=== PATIENT | female | born 2000 ===

== ENCOUNTER → 2024-12-14 | Outpatient (REF) | payer BC, SELFPAY ==
--- NOTE | 2024-12-14 | HM_ITS ---
* Total monitoring time 4 days and 13 hours. * Underlying rhythm is sinus with an average rate of 86/Min. * Rare supraventricular ectopy. * Rare ventricular ectopy. Rare couplets/triplets. * No significant pauses or high-grade AV blocks. * No patient markers or diary events. MTDD
--- OUTSIDE RECORDS SUMMARY | 2025-02-21 08:52 | XMS_ITS | Clinical Summary ---
Author Organization [facility] Address [address] [address] Phone Care Team Providers Care Coke Drawer Hand Name Role Phone Dayan Santo NP Primary Care Provid er Allergies No known active allergies Medications sertraline (ZOLOFT) 50 MG tablet Take 50 mg by mouth daily. 12/11/2021 Active LORazepam (ATIVAN) 0.5 MG tablet Take 0.5 mg by mouth 2 (two) times a day as needed for anxiety. 12/11/2021 Active albuterol 90 mcg/actuation inhaler Inhale 2 puffs into the lungs every 6 (six) hours as needed for wheezing. Active Active Problems Problem Noted Date Diagnosed Date History of UTI 01/28/2022 Hydronephrosis with urinary obstruction due to ureteral calculus 01/15/2022 Assessment & Plan (01/15/2022 12:50 AM EDT): We will strain all urine and perform a stone analysis if we catch a stone. She will be seen in consultation by urology with a plan for possible ureteral stent placement. We will have her n.p.o. She will have scheduled Toradol with as needed IV and oral analgesia. She will have as needed IV antiemetics. Depression with anxiety 01/15/2022 Mild intermittent asthma, uncomplicated 01/16/20 22 Acute cystitis 01/15/2022 Assessment & Plan (01/15/2022 12:50 AM EDT): We will give IV ceftriaxone. We will give IV fluids. Pyelonephritis of right kidney 01/15/2022 Encounters Date Type Department Care Team Description 01/13/2025 9:30 AM EDT - 01/13/2025 11:59 PM EDT Hospital Encounter [facility] [address] [place] [address] Conchita Singh CNP Discharge Disposition: Home or Self Care 12/10/2024 Procedure Pass [facility] [address] [place] [address] 12/10/2024 Transcribe Orders Virtual Department [address] [place] [address] Conchita Singh CNP Other chest pain (Primary Dx); Palpitations from Last 3 Months Family History Medical History Relation Comments Obesity Father No Known Problems Mother Relation Status Comments Father Alive Mother Alive Social History Tobacco Use Types Packs/Day Years Used Date Smoking Tobacco: Never Smokeless Tobacco: Never Alcohol Use Standard Drinks/Week Comments Never 0 (1 standard drink = 0.6 oz pur e alcohol) Education Answer Date Recorded Are you interested in more education? Not on tera e 09/06/2022 Are you concerned about learning? Not on file 09/06/2022 No 09/06/2022 No 09/06/2022 Digital Access Answer Date Recorded No 10/04/2022 No 10/04/2022 No 10/04/2022 Reliable internet access at home? Not on file 10/04/2022 Device with a working camera? Not on file Comments No Sex and Gender Information Value Date Recorded Sex Assigned at Female 01/14/2022 7:08 PM EDT Legal Sex Female 8:45 PM EDT Gender Identity Female 01/14/2022 7:08 PM EDT Sexual Orientation Not on file Last Filed Vital Signs Vital Sign Reading Time Taken Comments Blood Pressure 100/60 01/28/2022 9:15 AM EDT Pulse 73 01/28/2022 9:25 AM EDT Temperature 36.3 C (97.3 F) 01/28/2022 8:37 AM EDT Respiratory Rate 19 01/28/2022 9:25 AM EDT Oxygen Saturation 100% 01/28/2022 9:25 AM EDT Inhaled Oxygen Concentration - - Weight 70.8 kg (156 lb) 01/25/2022 9:04 AM EDT Height 162.6 cm (5' 4 ) 01/25/2022 9:04 AM EDT Body Mass Index 26.78 01/25/2022 9:04 AM EDT Plan of Treatment Health Maintenance Due Date Last Done Comments Adult Td,Tdap Booster 2002 DEPRESSION SCREENING 2014 SMOKING Hx and SMOKELESS TOB ACCO SCREENING 07/14/2015 HPV VACCINES (1 - 3-dose series) 2017 CHLAMYDIA SCREENING 2018 MENINGOCOCCAL VACCINES (B) ( 1 of 2 - Standard) 2018 HEPATITIS C SCREENING 2020 HIV ONE-TIME SCREENING (18-6 5 YEARS) 2020 PNEUMOCOCCAL VACCINES (0-49 years) (1 of 2 - PCV) 2021 PAP SMEAR 07/14/2023 INFLUENZA VACCINE (#1) 2024 COVID-19 VACCINE (1 - 2024-2 6 season) 2025 HEPATITIS A VACCINES Aged Out No long er eligible based on patient's age to complete this topic HIB VACCINES Aged Out No longer eligi ble based on patient's age to complete this topic MENINGOCOCCAL VACCINES (ACWY) Aged Out No longer eligible based on patient's age to complete this topic Medical Devices Implanted Type Area Plastic Welder Device Identifier Shelf Expiration Date Model / Serial / Lot Stent Ureteral 6fr 22 To 30cm Stretch Coated Sherif - [id number] Implanted:Qty: 1 on 01/15/2022 by Ayad Pedro MD at [facility] Right: Ureter [employer] 09/10/2024 [id number] / / [id number] Stent Ureteral 6fr 22 To 30cm Stretch Coated Sherif - [id number] Implanted:Qty: 1 on 01/28/2022 by Ayad Pedro MD at [facility] Right: Ureter [employer] 02/20/2024 [id number] / / [id number] Description:With strings att ached Procedures Procedure Name Priority Date/Time Associated Diagnosis Comments TTE COMPREHENSIVE Routine 01/13/2025 10: 14 AM EDT Other chest pain Palpitations from Last 3 Months Results * TTE COMPREHENSIVE (01/13/2025 10:14 AM EDT) Body Surface Area 1.76 m2 Height 163 cm Weight 71 kg Systolic BP 120 mmHg Diastolic BP 80 mmHg Left Atrium Dimension Anterior-Posterior 33 15 - 40 mm Aortic Valve Mean Gradient 4 mmHg Aortic Valve Time Velocity Integral 235.0 mm Aortic Valve Peak Velocity 1.3 m/s Aortic Valve Peak Gradient 7 mmHg Aortic Sinus Diameter 25 <40 mm Ascending Aorta Diameter 24 <36 mm Inferior Vena Cava Diameter 14 <21 mm Interventricular Septum Thickness 6 6 - 11 mm Left Ventricle Internal Diameter End Diastole 49 37 - 52 mm Left Ventricle Internal Diameter End Systole 32 <35 mm Left Ventricular Outflow Tract Diameter 21.0 mm LVOT VTI REST 191.0 mm Left Ventricular Outflow Tract Velocity 1.0 m/s Left Ventricular Outflow Tract Gradient at Rest 4 mmHg Left Ventricular Posterior Wall Thickness 7 6 - 11 mm Left Ventricle Ea Lateral Wave Speed 19.0 cm/s Left Ventricle Ea Septal Wave Speed 12.3 cm/s Ejection Fraction 70 50 - 75 Percent Mitral Valve Deceleration Time 171 ms Left Ventricle A Wave Speed 53.3 cm/s Left Ventricle E Wave Speed 79.5 cm/s Pulmonary Valve Peak Velocity 1.2 m/s Pulmonary Valve Peak Gradient 6 mmHg Right Ventricle Basal Diameter 34 25 - 41 mm Raw LV EF% 57 % MV E/E' Tissue Velocity Lateral 4.18 Relative Wall Thickness 0.29 0.22 - 0.42 Left Ventricle indexed to BSA 57.4 g/m2 MV E/A ratio 1.5 MV E/e' septal 6.46 Left Ventricle E/e' Average 5.3 Aortic Valve Prosthetic Mean Gradient 4 mmHg Aortic Valve Sinus Index by BSA 14 mm/m2 Aorta Sinus Index by Height 1.53 cm/m Aorta Sinus CSA index by Height 3.01 cm2/m Ascending Aorta Index 14 mm/m2 Asc Aorta CSA Index by Height 2.77 cm2/m Pulmonic Valve Prosthetic Peak Gradient 6 mmHg MGB CV AV DIMENSIONLESS INDEX (PEAK) - STRESS ECHO DOBUT - REST 0.77 Ascending Aorta Index 14 mm Aortic Sinus Index 14 mm Ascending Aorta Diameter 14 mm Aortic Valve Sinus Index 1 14 19 - 27 mm AO ASC DIAM BSA INDEX 13.64 Echo E/Ea 6.46 Aortic Valve Prosthetic Peak Gradient 7 mmHg Left Atrial Volume Index 18 16 - 34 mL/m2 Right Ventricle TAPSE 21 >=17 mm Right Ventricle Pulse Doppler S Wave 12.8 >=9.5 cm/s Left Atrial Volume 31 mL Left Atrial Volume Index by Height 19 mL/m Right Atrium Area 17 cm2 Right Atrium Area index 10 cm2/m2 Anatomical Region Laterality Modality Heart Ultrasound Narrative 01/13/2025 11:38 AM EDT Images from the original result were not included. Normal LV size and function EF 65 to 70%. Normal left atrial size. Normal diastolic function. Normal RV size and function. Normal PA pressure estimation. No significant valvular heart disease is seen. Left Ventricle The left ventricle is normal in size. There is normal wall thickness. The LV ejection fraction is 70%. There are no wall motion abnormalities. LV diastolic function appears within normal limits for age. The E/A ratio is 1.5. The e' septal wave velocity is 12.3 cm/s. The e' lateral wave velocity is 19.0 cm/s. The average E/e' ratio is 5.3. Right Ventricle The right ventricle is normal in size. The RV basal dimension is 34 mm. There is normal right ventricular systolic function. TAPSE is 21 mm. RV S' wave is 12.8 cm/s. Left Atrium The left atrium is normal in size. The left atrial volume is 31 mL. There are normal flow patterns in the pulmonary vein. Right Atrium The right atrium is normal in size. The right atrial area is 17 cm2. The IVC is normal in size with normal inspiratory collapse. This is consistent with normal RA pressure. The IVC diameter is 14 mm (normal: <= 21 mm). Hepatic veins are normal in size. Mitral Valve There is mild thickening of the anterior mitral leaflet. There is no mitral stenosis. There is trace mitral regurgitation. Tricuspid Valve The tricuspid valve appears normal. There is no tricuspid stenosis. There is trace tricuspid regurgitation. Aortic Valve The aortic valve is tricuspid with normal leaflets. There is no aortic stenosis. The aortic valve peak velocity is 1.3 m/s. The peak aortic valve gradient is 7 mmHg. There is no aortic regurgitation. The visualized portions of the thoracic aorta appear normal in size. Pulmonic Valve The pulmonic valve appears normal. Pericardium There is no pericardial effusion. There are no pleural effusions. General Findings The image quality was good (2). Technique(s) used in the evaluation: Color flow Doppler and Spectral Doppler. The predominant rhythm during the study was sinus. Comparison Findings There are no prior studies for comparison. IAS/IVS The interatrial septum appears normal. There is no evidence of patent foramen ovale (PFO). The interventricular septum appears normal. There is no evidence of a ventricular septal defect. Cnochita Singh SEWING INSPECTOR CV ECHO ORDERABLES Final Result from Last 3 Months Insurance [facility] OUT OF STATE O [facility] OUT OF STATE PPO [employer] OUT OF STATE PPO [employer] [place] OUT OF STATE PPO Member Subscriber Plan / Payer (Ef fective 2024-Present) Name:Emeli Jimenez Member ID:[id number] Relation to Subscriber:Child Name:MARILIA JIMENEZ Subscriber ID:[id number] Date of :2000 (Home) Address: [address] [place] [address] Payer ID:[id number] (NAIC) Type:PPO Address: [address] [place], [place] [facility] OUT OF STATE PPO Advance Directives For more information, please contact: [phone] (9AM - 5PM [facility], Friday-Friday) * Full Code (Latest Code Status on File) Date Activated Date Inactivated Comments 01/15/2022 1:24 AM Question Answer Comments Code Status Confirmed With: Patient Care Teams Coke Drawer Hand Relationship Specialty Start Date End Date Dayan Santo NP [address] [place] [id number] PCP - General Family Medicine 01/14/22 Additional Source Comments The information contained in this document represents components of the legal health record. It is not the complete legal health record.[facility]
--- OUTSIDE RECORDS SUMMARY | 2025-02-21 08:53 | XMS_ITS | Encounter Summary ---
Author Organization [facility] Address [address] [facility] [address] [place] [phone] Phone Care Team Providers Care Access Rep Name Role Phone Dayan Santo LEGAL PRACTICE MANAGER Primary Care Provid er Encounter Details Date Type Department Care Team (Late st Contact Info) Description 01/15/2022 Procedure Pass OR Admitting Dept - Virtual Department [address] [place] [address] Social History Tobacco Use Types Packs/Day Years Used Date Smoking Tobacco: Never Smokeless Tobacco: Never Alcohol Use Standard Drinks/Week Comments Never 0 (1 standard drink = 0.6 oz pur e alcohol) Comments Unknown Sex and Gender Information Value Date Recorded Sex Assigned at Female 01/14/2022 7:08 PM EDT Legal Sex Female 8:45 PM EDT Gender Identity Female 01/14/2022 7:08 PM EDT Sexual Orientation Not on file documented as of this encounter Plan of Treatment Not on file documented as of this encounter Visit Diagnoses Not on filedocumented in this encounter Care Teams Access Rep Relationship Specialty Start Date End Date Dayan Santo NP [address] [place] [address] PCP - General Family Medicine 01/14/22 documented as of this encounter Additional Source Comments The information contained in this document represents components of the legal health record. It is not the complete legal health record.[facility]
--- OUTSIDE RECORDS SUMMARY | 2025-02-21 08:53 | XMS_ITS | Encounter Summary ---
Author Organization [facility] Address [address] [facility] [address] [place] [address] Phone Care Team Providers Care Renewable Energy Trader Name Role Phone Dayan Santo NP Primary Care Provid er Reason for Referral * Outpatient Procedure - Closed Specialty Diagnoses / Procedures Referred By Nisha manuel Referred To Contact Radiology Diagnoses Other chest pain Palpitations Procedures Adult Echo TTE Conchita Singh CNP [address] [place] [address] Phone: tel: fax: mailto: Referral ID Status Reason Start Date Expiration Date Visits Re quested Visits Authorized [id number] Closed 12/10/2024 12/10/2025 1 1 Encounter Details Date Type Department Care Team (Late st Contact Info) Description 12/10/2024 Transcribe Orders Virtual Department [address] [place] [address] Conchita Singh CNP [address] [place] [address] [email or web address] Other chest pain (Primary Dx); Palpitations Social History Tobacco Use Types Packs/Day Years [...] on file documented as of this encounter Results * TTE COMPREHENSIVE (01/13/2025 10:14 AM [...] no evidence of a ventricular septal defect. Conchita Singh [facility] CV ECHO ORDERABLES Final Result documented in this encounter Visit Diagnoses Diagnosis Other chest pain- Primary Palpitations Other chest pain Palpitations documented in this encounter Care Teams Renewable Energy Trader Relationship Specialty Start Date End Date Dayan Santo NP [address] [place] [address] PCP - General Family Medicine 01/14/22 documented as of this encounter Additional Source Comments The information contained in this document represents components of the legal health record. It is not the complete legal health record.[facility]
--- OUTSIDE RECORDS SUMMARY | 2025-02-21 08:53 | XMS_ITS | Encounter Summary ---
Author Organization [facility] Address [address] [facility] [address] [place] [address] Phone Care Team Providers Care Manager Print Name Role Phone Dayan Santo NP Primary Care Provid er Encounter Details Date Type Department Care Team (Late st Contact Info) Description 07/30/2017 Ancillary Orders Virtual Department [address] [place] [address] Daren Ramos MD [address] [place] [phone] [email or web address] Pain of joint of left ankle and foot Social History Tobacco Use Types Packs/Day Years Used Date Smoking Tobacco: Never Assessed Comments Unknown Sex and Gender Information Value Date Recorded Sex Assigned at Female 01/14/2022 7:08 PM EDT Legal Sex Female 8:45 PM EDT Gender Identity Female 01/14/2022 7:08 PM EDT Sexual Orientation Not on file documented as of this encounter Plan of Treatment Not on file documented as of this encounter Visit Diagnoses Diagnosis Pain of joint of left ankle and foot documented in this encounter Care Teams Manager Print Relationship Specialty Start Date End Date Dayan Santo NP [address] [place] [address] [place] [address] PCP - General Family Medicine 01/14/22 documented as of this encounter Additional Source Comments The information contained in this document represents components of the legal health record. It is not the complete legal health record.[facility]
--- OUTSIDE RECORDS SUMMARY | 2025-02-21 08:53 | XMS_ITS | Encounter Summary ---
Author Organization [facility] Address [address] [facility] [address] [place] [address] Phone Care Team Providers Care Textiles Sales Representative Name Role Phone Dayan Santo NP Primary Care Provid er Encounter Details Date Type Department Care Team (Late st Contact Info) Description 01/14/2022 Procedure Pass [facility] Scan - [address] [address] Social History Tobacco Use Types Packs/Day Years [...] on file documented as of this encounter Functional Status * Calculated C-SSRS Risk Score (Lifetime/Recent) Answer Date of Assessment Author No Risk Indicated 01/14/2022 7:08 PM EDT Guera Farrell RN * [place] Suicide Severity Rating Scale (Screener/Recent Self-Report) Question Answer Date of Assessment Author 1. Wish to be (Past 1 Month) No 01/14/2022 7:08 PM EDT Guera Rich RN 2. Non-Specific Active Suici reagan Thoughts (Past 1 Month) No 01/14/2022 7:08 PM EDT Lianne Rich RN 6. Suicidal Behavior (Lifetime) No 7:08 PM EDT Guera Rich RN documented as of this encounter Plan of Treatment Not on file documented as of this encounter Visit Diagnoses Not on filedocumented in this encounter Care Teams Textiles Sales Representative Relationship Specialty Start Date End Date Dayan Santo NP [address] [place] [address] PCP - General Family Medicine 01/14/22 documented as of this encounter Additional Source Comments The information contained in this document represents components of the legal health record. It is not the complete legal health record.[facility]
--- OUTSIDE RECORDS SUMMARY | 2025-02-21 08:53 | XMS_ITS | Encounter Summary ---
Author Organization [facility] Address [address] [facility] [address] [place] [address] Phone Care Team Providers Care Dental Ceramist Helper Name Role Phone Dayan Santo METROLOGIST Primary Care Provid er Encounter Details Date Type Department Care Team (Late st Contact Info) Description 01/28/2022 Procedure Pass [place] Admitting Dept - Virtual Department [address] [place] [address] Social History Tobacco Use Types Packs/Day Years Used Date Smoking Tobacco: Never Smokeless Tobacco: Never Alcohol Use Standard Drinks/Week Comments Never 0 (1 standard drink = 0.6 oz pur e alcohol) Comments No Sex and Gender Information Value Date Recorded Sex Assigned at Female 01/14/2022 7:08 PM EDT Legal Sex Female 8:45 PM EDT Gender Identity Female 01/14/2022 7:08 PM EDT Sexual Orientation Not on file documented as of this encounter Plan of Treatment Not on file documented as of this encounter Visit Diagnoses Not on filedocumented in this encounter Care Teams Dental Ceramist Helper Relationship Specialty Start Date End Date Dayan Santo NP [address] [place] [address] PCP - General Family Medicine 01/14/22 documented as of this encounter Additional Source Comments The information contained in this document represents components of the legal health record. It is not the complete legal health record.[facility]
--- OUTSIDE RECORDS SUMMARY | 2025-02-21 08:53 | XMS_ITS | Encounter Summary ---
Author Organization [facility] Address [address] [facility] [address] [place] [address] Phone Care Team Providers Care Restaurant District Manager Name Role Phone Dayan Santo BOY'S ADVISER Primary Care Provid er Encounter Details Date Type Department Care Team (Late st Contact Info) Description 12/10/2024 Procedure Pass [facility] [address] [place], [place] [id number] Social History Tobacco Use Types Packs/Day Years [...] on filedocumented in this encounter Care Teams Restaurant District Manager Relationship Specialty Start Date End Date Dayan Santo NP [address] [place] [address] [place] [address] PCP - General Family Medicine 01/14/22 documented as of this encounter Additional Source Comments The information contained in this document represents components of the legal health record. It is not the complete legal health record.[facility]
== END ==
LOC: HO.CARD
PROVIDERS: PCP Nurse Practitioner; Visit Provider Nurse Practitioner
DX: R00.2 Palpitations (principal)
CPT/HCPCS: 93246

== ENCOUNTER → 2024-12-14 | Outpatient (BNV) | payer BC, SELFPAY | PROVIDERS: PCP Nurse Practitioner; Visit Provider Internal Medicine | DX: I49.3 Ventricular premature depolarization (principal); I49.49 Other premature depolarization | CPT/HCPCS: 93248 ==